=== PATIENT | male | born 1970 | race African-American/Black ===

== ENCOUNTER 2017-01-01 22:13 | Emergency (ER) | payer MEDICAID ==
[~2017-01-01] VITALS: Ht 185.4 cm; Wt 96.0 kg
[~2017-01-01 22:13] MED LIST: AMLO10TA4 PO; ASCO-339 PO; CLON0.1T14 TOP; FOLI-43 PO; LEVO500T2 PO; LISI40TA4 PO; METO25TA6 PO; MULT-1146 PO; OMEP40CA PO; PRAV40TA58 PO; PRED10TA PO; THIA100T75 PO
[2017-01-02] MEDS ORDERED: HYDROCODONE/ACETAMINOPHEN 5/325MG TABLET PO ONE (00:15)
[2017-01-02] MEDS ORDERED: PROCHLORPERAZINE MALEATE 10MG TABLET PO ONE (00:15)
[2017-01-02] MEDS ORDERED: NAPROXEN 500MG TABLET PO SCH (03:15)
[2017-01-02] MEDS ORDERED: HYDROCODONE/APAP 7.5/325MG 1 TAB TABLET PO ONE (04:00)
[2017-01-02 04:01] VITALS: BP 163/94
== END 2017-01-02 04:30 | disposition home or self-care (01) ==
LOC: ER 22:13
DX: R51 Headache (principal); K21.9 Gastro-esophageal reflux disease without esophagitis; I10 Essential (primary) hypertension; Z88.2 Allergy status to sulfonamides
CPT/HCPCS: 70450; 99284; Z7610; Q0164

== ENCOUNTER 2017-03-15 23:23 | Emergency (ER) | payer MEDICAID ==
[~2017-03-15] VITALS: Ht 185.4 cm; Wt 95.0 kg
[2017-03-16] MEDS ORDERED: ONDANSETRON HCL 4MG/2ML VIAL IV STA (01:11)
[2017-03-16] MEDS ORDERED: FAMOTIDINE 20MG/2ML VIAL IV STA (01:11)
[2017-03-16] MEDS ORDERED: KETOROLAC 30MG/ML VIAL IV STA (01:11)
[2017-03-16] MEDS ORDERED: SODIUM CHLORIDE 0.9% 1,000 ML IV ONE (01:11)
[2017-03-16 01:36] LABS: BASOPHILS % 0.2 % (0.0-2.0); HEMATOCRIT. 43.9 % (42.0-52.0); HEMOGLOBIN. 14.7 g/dL (14.0-18.0); LYMPHOCYTES % 9.3 % (20.0-50.0); MEAN CORPUSCULAR HEMOGLOBIN 29.1 pg (28.0-32.0); MEAN CORPUSCULAR VOLUME 86.7 fL (80.0-94.0); MEAN PLATELET VOLUME 8.6 fl (7.4-10.4); MONOCYTES % 3.6 % (2.0-8.0); NEUTROPHILS % 86.9 % (40.0-76.0); PLATELET 242 x1000/uL (130-400); RED BLOOD CELL COUNT 5.07 mill/uL (4.7-6.1); RED CELL DISTRIBUTION WIDTH 14.3 % (11.6-14.6)
[2017-03-16 01:42] LABS: CHLORIDE 108 mEq/L (98-107)
[2017-03-16 01:43] LABS: INR 1.1; PROTHROMBIN TIME 11.8 sec (9.4-11.6)
[2017-03-16] MEDS ORDERED: MORPHINE SULFATE 4 MG/ML CPJ (NOT FOR IM USE) IV ONE (02:45)
[2017-03-16] MEDS ORDERED: ONDANSETRON HCL 4MG/2ML VIAL IM ONE (02:45)
[2017-03-16] MEDS ORDERED: METOCLOPRAMIDE HCL 10MG/2ML VIAL IV ONE (03:30)
[2017-03-16] MEDS ORDERED: METOCLOPRAMIDE HCL 10MG/2ML VIAL IV NR (03:45)
[2017-03-16 06:37] LABS: CLARITY URINE CLEAR (CLEAR); COLOR URINE DARK YELLOW (YELLOW); KETONES URINE TRACE (NEGATIVE); LEUKOCYTE ESTERASE URINE NEGATIVE (NEGATIVE); NITRITE URINE NEGATIVE (NEGATIVE); OCCULT BLOOD URINE NEGATIVE (NEGATIVE); PROTEIN URINE 1+ (NEGATIVE); SPECIFIC GRAVITY URINE 1.038 (1.005-1.030)
[2017-03-16 06:50] VITALS: BP 151/85
== END 2017-03-16 06:55 | disposition home or self-care (01) ==
LOC: ER 23:23
DX: R10.13 Epigastric pain (principal); R11.2 Nausea with vomiting, unspecified; E86.0 Dehydration; M79.1 Myalgia; I10 Essential (primary) hypertension; K21.9 Gastro-esophageal reflux disease without esophagitis; F17.200 Nicotine dependence, unspecified, uncomplicated; Z88.2 Allergy status to sulfonamides; Z98.890 Other specified postprocedural states
CPT/HCPCS: 36415; 80053; 81001; 83690; 85025; 85610; 93005; 96372; 96374; 96375; 99285; J1885; J2270; J2405; J2765; J3490; J7030; Z7610

== ENCOUNTER 2017-12-22 14:31 | Emergency (ER) | payer MEDICAID ==
[~2017-12-22] VITALS: Ht 185.4 cm; Wt 91.0 kg
[2017-12-22 19:05] VITALS: BP 136/85
== END 2017-12-22 19:10 | disposition home or self-care (01) ==
LOC: ER 16:26
DX: T82.838A Hemorrhage due to vascular prosthetic devices, implants and grafts, initial encounter (principal); Y82.8 Other medical devices associated with adverse incidents; Y92.89 Other specified places as the place of occurrence of the external cause; Z88.2 Allergy status to sulfonamides
CPT/HCPCS: 71045; 99285